=== PATIENT | female | born 1950 | race African-American/Black ===

== ENCOUNTER 2016-11-24 17:49 | Inpatient (IN) | payer MEDICARE ==
[2016-11-24 17:49] VITALS: BMI 32.6
[2016-11-24] MEDS ORDERED: METHYLPREDNISOLONE 125 MG/2 ML VIAL IV ONE (18:35)
[2016-11-24 18:48] LABS: AUTOMATED BASOPHIL 1.3 % (0-2); AUTOMATED EOSINOPHIL 1.6 % (0-5); AUTOMATED LYMPH 16.4 % (17-44); AUTOMATED MONOCYTE 12.4 % (3-10); AUTOMATED NEUTROPHIL 68.3 % (45-76); MPV 10.6 fL (7.4-10.4)
[2016-11-24 18:58] LABS: ABG Draw Site Left Radial; ALLEN'S TEST PASS; BEb 5.8 (+/- 2)
--- NOTE | 2016-11-24 19:02 | DIRPT ---
CLINICAL DATA: 65-year-old female with cough and shortness of breath for 2 weeks. Initial encounter. EXAM: CHEST 2 VIEW COMPARISON: 08/23/2016 and earlier. FINDINGS: Upright AP and lateral views of the chest. Moderate to severe cardiomegaly appears mildly increased. Small to moderate right pleural effusion. There may also be a small left pleural effusion. No superimposed acute pulmonary edema or pneumothorax. Other mediastinal contours are within normal limits. Visualized tracheal air column is within normal limits. No acute osseous abnormality identified. IMPRESSION: 1. Chronic cardiomegaly, but cardiac silhouette appears mildly increased since June raising the possibility of pericardial effusion. 2. Small to moderate right pleural effusion is new. Possible small left pleural effusion. No acute pulmonary edema. Electronically Signed By: Phyllis Matos M.D. On: 11/24/2016 18:59
[2016-11-24 19:07] LABS: PARTIAL THROMB. TIME 26.4 SEC (22-35); PT-INR 1.4
[2016-11-24 19:15] LABS: BLOOD UREA NITROGEN 25 MG/DL (7-17); CALC CORRECTED 9.8 MG/DL (8.4-10.2); CALCULATED OSMOLALITY 272 MOs/Kg (270-290); CHLORIDE 101 mEq/L (98-107); GLUCOSE 99 MG/DL (70-99); SODIUM LEVEL 139 mEq/L (137-146); TOTAL PROTEIN 6.8 G/DL (6.3-8.2)
--- NOTE | 2016-11-24 19:20 | EDPRACDOC ---
- General Information Information Source: Patient Mode Of Arrival: Ambulance - History of Present Illness Onset: several days HPI: PT PRESENTS DUE TO INCREASED SHOB AND COUGHING THAT HAS WORSENED OVER THE PAST SEVERAL DAYS. PT WITH KNOWN HISTORY OF CARDIOMEGALY WITH VEST IN PLACE WHO HAS COME TO THE HOSPITAL FOR IV INFUSIONS OF LASIX OVER THE PAST SEVERAL DAYS. SHE PRESENTS WITH GENERALIZED 2+ PITTING EDEMA, MILD SHOB, NON-PRODUCTIVE COUGH, DENIES NAUSEA, VOMITING, CHILLS OR FEVER. Shortness of Breath: Mild Relevant History: Reports: Heart Failure (CHF) Cough: Reports: Non-productive Rhinorrhea: Reports: Clear Ear Symptoms: Reports: None SOB Worsens with: Reports: Exertion, Movement, Coughing, Lying Flat, Position SOB Improves with: Reports: Sitting up, Rest, Position Recently treated infections:: Denies: Otitis media, Pneumonia, URI <Carla Slade - Last Filed: 11/24/16 19:18> <Onur Proctor - Last Filed: 11/24/16 21:08> - General Information Chief Complaint: Flu-Like Symptoms Stated Complaint: SHOB Time Seen by Provider: 11/24/16 18:27 Home Medications: Home Medications Albuterol Sulfate [Proventil, Ventolin] 2.5 mg NEB Q6H PRN 08/23/16 Metoprolol Tartrate [Lopressor] 25 mg PO BID 08/23/16 Trazodone HCl [Desyrel] 50 mg PO QHS 08/23/16 Omeprazole [Prilosec] 20 mg PO DAILY #30 cap 08/28/16 Potassium Chloride 20 meq PO DAILY #60 tablet.er 08/28/16 Allopurinol [Zyloprim] 300 mg PO DAILY 11/24/16 Benzonatate 200 mg PO TID PRN 11/24/16 Digoxin [Lanoxin, Digitek] 0.125 mg PO DAILY 11/24/16 Furosemide [Lasix] 40 mg PO BID 11/24/16 Ondansetron HCl [Zofran] 4 mg PO Q8H PRN 11/24/16 Allergies/Adverse Reactions: Allergies Allergy/AdvReac Type Severity Reaction Status Date / Time strawberry Allergy Itching Verified 11/24/16 18:14 - Treatment Prior to ED Arrival Reported Medications/Treatment FIELD RECRUITER Medications FIELD RECRUITER (Medication/ neb treatment Dose/Time) EMS Treatment BLS IV No <Carla Slade W - Last Filed: 11/24/16 19:18> - Treatment Prior to ED Arrival Reported Medications/Treatment FIELD RECRUITER Medications FIELD RECRUITER (Medication/ neb treatment Dose/Time) EMS Treatment BLS IV No <Onur Proctor - Last Filed: 11/24/16 21:08> ED Past Medical History - History Reviewed Yes Nurses notes reviewed and agree except as marked - Patient Medical History Neurological History: Denies: Cerebrovascular Accident, Seizures, Dementia Cardiac History: Reports: Atrial Fibrillation (New diagnosis 08/2016), Hypertension, Congestive Heart Failure (SYSTOLIC. 2015 ECHO: EF<20%. mild pulm HTN.), Hypercholesterolemia. Denies: Heart Attack, Pacemaker (scheduled for one soon) Respiratory History: Denies: Asthma, COPD GI/ History: Reports: Renal Disease, Gastroesophageal Reflux, Ulcer Musculoskeletal History: Reports: Arthritis, Gout Psychological History: Denies: Depression, Anxiety, Bipolar Disorder, Substance Use Disorder Systemic History: Denies: Anemia, Hyperthyroidism, Hypothyroidism Surgical History: Reports: Cholecystectomy, Hysterectomy (for fibroids), Other ( Knee). Denies: Tonsillectomy/Adnoidectomy - Family Medical History Reports: Hypertension (Mother), Diabetes (Mother, brother), Stroke (Mother), Cardiac Disorders (Father: [place] at 53yo. Mother: [place], at 73 yo.). Denies : Cancer - Social Medical History Smoking Status: Never smoker Social History: Denies: Substance Use Disorder <Carla Slade W - Last Filed: 11/24/16 19:18> EDM Review of Systems - Review of Systems ROS Negative Except as Marked: Yes All systems reviewed and were negative except as marked <Carla Slade W - Last Filed: 11/24/16 19:18> - Physical Exam Constitutional: Alert. negative: Well appearing Oriented to: Time, Person, Place Last recorded Vital Signs: Last Vital Signs Temp 97.8 F 11/24/16 17:56 Pulse 79 11/24/16 18:24 Resp 14 11/24/16 18:24 BP 156/82 11/24/16 18:24 Pulse Ox 93 11/24/16 18:24 Oxygen Pulse Oxygen Saturation 93 O2 Device Room Air Oxygen Flow Rate Fraction of Inspired Oxygen ( FIO2) - HEENT Head: Normal ( normocephalic) Eye Exam: Normal (PERRL, EOMI, Sclera white) Oropharynx: Normal (Pharynx:Moist without exudate,Gums-no swelling) Tympanic Membrane: Normal Nose: No Symptoms Reported (septum midline) Neck: Normal (FROM, trachea at midline) - Respiratory/Cardiovascular Respiratory: Accessory Muscle Use, Diminished Cardiovascular: Normal (RRR without murmur, gallop or rub) - GI Auscultation: Normal (NABS) Palpation: Tense Tenderness: Diffuse, Mild Lopez's Sign: Negative Rectal Exam: Deferred - Musculoskeletal Back: Normal (Non-Tender) Extremities: Normal (Normal tone, Pulses 2+ No cyanosis or edema, FROM) - Integumentary Skin: Normal, Warm, Dry Lymphatics: Normal (no adenopathy) - Neurologic Memory Impaired: Normal Motor Function: Normal (Normal tone, Pulses 2+ No cyanosis or edema, FROM) Cranial Nerve: Normal (CN II-X11 intact sensation, strength 5/5) Cerebellar: Normal Mood Description: Normal Perception: Normal <Carla Slade - Last Filed: 11/24/16 19:18> - Physical Exam Last recorded Vital Signs: Last Vital Signs Temp 97.8 F 11/24/16 17:56 Pulse 79 11/24/16 20:31 Resp 20 11/24/16 20:31 BP 174/99 11/24/16 20:31 Pulse Ox 98 11/24/16 20:31 Oxygen Pulse Oxygen Saturation 98 O2 Device Nasal Cannula Oxygen Flow Rate 2 Fraction of Inspired Oxygen ( FIO2) <Onur Proctor - Last Filed: 11/24/16 21:08> ED SOB MDM - Differential Diagnosis Differential Diagnosis: Heart Failure, Other - Results Result Diagrams: 11/24/16 18:10 11/24/16 18:10 Results: PT 14.4 SEC (9.2-11.2) H 11/24/16 18:10 INR 1.4 11/24/16 18:10 APTT 26.4 SEC (22-35) 11/24/16 18:10 Puncture Site Left radial 11/24/16 18:50 pH 7.480 pH UNITS (7.35-7.45) H 11/24/16 18:50 pCO2 40.0 mmHg (35-45) 11/24/16 18:50 pO2 62.0 mmHg (80-100) L 11/24/16 18:50 HCO3 29.8 MMOL/L (22-26) H 11/24/16 18:50 Total CO2 31.0 MMOL/L (23-27) H 11/24/16 18:50 Base Excess 5.8 (+/- 2) H 11/24/16 18:50 FiO2 % .21 11/24/16 18:50 Specimen Drawn By Kasgl 11/24/16 18:50 Lab Results 11/24/16 11/24/16 18:50 18:10 PT 14.4 H INR 1.4 APTT 26.4 Puncture Site Left radial pH 7.480 H pCO2 40.0 pO2 62.0 L HCO3 29.8 H Total CO2 31.0 H Base Excess 5.8 H FiO2 % .21 Specimen Drawn By Kasgl - EKG EKG #1 EKG Time: 17:57 -: Yes EKG interpreted by me Rate: bpm: [address] [place]: Normal Rhythm: NSR, PVCs Block: None Hypertrophy: None ST: Old, Lat, Infarct <Carla Slade W - Last Filed: 11/24/16 19:18> - Results Result Diagrams: 11/24/16 18:10 11/24/16 18:10 Results: WBC 4.1 xk/uL (3.8-10.8) 11/24/16 18:10 RBC 4.30 xM/uL (4.20-5.40) 11/24/16 18:10 Hgb 12.5 g/dL (12.0-16.0) 11/24/16 18:10 Hct 40.0 % (36-47) 11/24/16 18:10 MCV 93 fL (81-99) 11/24/16 18:10 MCH 29.0 pg (27-32) 11/24/16 18:10 MCHC 31.2 g/dl (33-36) L 11/24/16 18:10 RDW 19.9 % (11.5-14.5) H 11/24/16 18:10 Plt Count 158 xk/uL (130-400) 11/24/16 18:10 MPV 10.6 fL (7.4-10.4) H 11/24/16 18:10 Neut % (Auto) 68.3 % (45-76) 11/24/16 18:10 Lymph % (Auto) 16.4 % (17-44) L 11/24/16 18:10 [place] % (Auto) 12.4 % (3-10) H 11/24/16 18:10 Eos % (Auto) 1.6 % (0-5) 11/24/16 18:10 Baso % (Auto) 1.3 % (0-2) 11/24/16 18:10 Absolute Neuts (auto) 2.79 xk/uL (1.7-8.2) 11/24/16 18:10 Absolute Lymphs (auto) 0.66 xk/uL (0.65-4.75) 11/24/16 18:10 PT 14.4 SEC (9.2-11.2) H 11/24/16 18:10 INR 1.4 11/24/16 18:10 APTT 26.4 SEC (22-35) 11/24/16 18:10 Puncture Site Left radial 11/24/16 18:50 pH 7.480 pH UNITS (7.35-7.45) H 11/24/16 18:50 pCO2 40.0 mmHg (35-45) 11/24/16 18:50 pO2 62.0 mmHg (80-100) L 11/24/16 18:50 HCO3 29.8 MMOL/L (22-26) H 11/24/16 18:50 Total CO2 31.0 MMOL/L (23-27) H 11/24/16 18:50 Base Excess 5.8 (+/- 2) H 11/24/16 18:50 FiO2 % .21 11/24/16 18:50 Specimen Drawn By Kasgl 11/24/16 18:50 Sodium 139 mEq/L (137-146) 11/24/16 18:10 Potassium 3.9 mEq/L (3.5-5.1) 11/24/16 18:10 Chloride 101 mEq/L (98-107) 11/24/16 18:10 Carbon Dioxide 25 mMOL/L (22-33) 11/24/16 18:10 Anion Gap 17 mEq/L (8-16) H 11/24/16 18:10 BUN 25 MG/DL (7-17) H 11/24/16 18:10 Creatinine 1.40 MG/DL (0.52-1.04) H 11/24/16 18:10 Estimated GFR (MDRD) 46 mL/min (>=60) L 11/24/16 18:10 Glucose 99 MG/DL (70-99) 11/24/16 18:10 Calculated Osmolality 272 MOs/Kg (270-290) 11/24/16 18:10 Lactic Acid 2.2 mEq/L (0.7-2.1) H 11/24/16 18:10 Calcium 9.0 MG/DL (8.4-10.2) 11/24/16 18:10 Corrected Calcium 9.8 MG/DL (8.4-10.2) 11/24/16 18:10 Total Bilirubin 2.5 MG/DL (0.2-1.3) H 11/24/16 18:10 AST 30 IU/L (14-36) 11/24/16 18:10 ALT 33 IU/L (9-52) 11/24/16 18:10 Alkaline Phosphatase 232 IU/L (55-165) H 11/24/16 18:10 Creatine Kinase 62 IU/L (30-134) 11/24/16 18:10 Troponin I < 0.01 ng/mL (<.04) 11/24/16 18:10 Total Protein 6.8 G/DL (6.3-8.2) 11/24/16 18:10 Albumin 3.2 G/DL (3.5-5.0) L 11/24/16 18:10 Urine Color Yellow 11/24/16 19:13 Urine Clarity Sl hzy 11/24/16 19:13 Urine pH 6.0 (5.0-8.0) 11/24/16 19:13 Ur Specific Belva 1.010 (1.003-1.035) 11/24/16 19:13 Urine Protein Trace (NEG/TRACE) 11/24/16 19:13 Urine Glucose (UA) Neg (NEGATIVE) 11/24/16 19:13 Urine Ketones Neg (NEGATIVE) 11/24/16 19:13 Urine Occult Blood Neg (NEG/TRACE) 11/24/16 19:13 Urine Nitrite Neg (NEGATIVE) 11/24/16 19:13 Urine Bilirubin Neg (NEGATIVE) 11/24/16 19:13 Urine Urobilinogen 0.2 MG/DL (0-1) 11/24/16 19:13 Ur Leukocyte Esterase Neg (NEGATIVE) 11/24/16 19:13 Urine RBC 0-2 (0-5) 11/24/16 19:13 Urine WBC 10-20 (0-5) H 11/24/16 19:13 Ur Epithelial Cells 3+ 11/24/16 19:13 Urine Bacteria 4+ (NEG/FEW) H 11/24/16 19:13 Hyaline Casts 10-20 (0-2) H 11/24/16 19:13 Urine Mucus Occ (NEG/OCC) 11/24/16 19:13 Lab Results 11/24/16 11/24/16 11/24/16 19:13 18:50 18:10 WBC RBC Hgb Hct MCV MCH MCHC RDW Plt Count MPV Neut % (Auto) Lymph % (Auto) [place] % (Auto) Eos % (Auto) Baso % (Auto) Absolute Neuts (auto) Absolute Lymphs (auto) PT INR APTT Puncture Site Left radial pH 7.480 H pCO2 40.0 pO2 62.0 L HCO3 29.8 H Total CO2 31.0 H Base Excess 5.8 H FiO2 % .21 Specimen Drawn By Kasgl Sodium Potassium Chloride Carbon Dioxide Anion Gap BUN Creatinine Estimated GFR (MDRD) Glucose Calculated Osmolality Lactic Acid 2.2 H Calcium Corrected Calcium Total Bilirubin AST ALT Alkaline Phosphatase Creatine Kinase Troponin I Total Protein Albumin Urine Color Yellow Urine Clarity Sl hzy Urine pH 6.0 Ur Specific [place] 1.010 Urine Protein Trace Urine Glucose (UA) Neg Urine Ketones Neg Urine Occult Blood Neg Urine Nitrite Neg Urine Bilirubin Neg Urine Urobilinogen 0.2 Ur Leukocyte Esterase Neg Urine RBC 0-2 Urine WBC 10-20 H Ur Epithelial Cells 3+ Urine Bacteria 4+ H Hyaline Casts 10-20 H Urine Mucus Occ 11/24/16 11/24/16 11/24/16 18:10 18:10 18:10 WBC 4.1 RBC 4.30 Hgb 12.5 Hct 40.0 MCV 93 MCH 29.0 MCHC 31.2 L RDW 19.9 H Plt Count 158 MPV 10.6 H Neut % (Auto) 68.3 Lymph % (Auto) 16.4 L [place] % (Auto) 12.4 H Eos % (Auto) 1.6 Baso % (Auto) 1.3 Absolute Neuts (auto) 2.79 Absolute Lymphs (auto) 0.66 PT 14.4 H INR 1.4 APTT 26.4 Puncture Site pH pCO2 pO2 HCO3 Total CO2 Base Excess FiO2 % Specimen Drawn By Sodium 139 Potassium 3.9 Chloride 101 Carbon Dioxide 25 Anion Gap 17 H BUN 25 H Creatinine 1.40 H Estimated GFR (MDRD) 46 L Glucose 99 Calculated Osmolality 272 Lactic Acid Calcium 9.0 Corrected Calcium 9.8 Total Bilirubin 2.5 H AST 30 ALT 33 Alkaline Phosphatase 232 H Creatine Kinase 62 Troponin I < 0.01 Total Protein 6.8 Albumin 3.2 L Urine Color Urine Clarity Urine pH Ur Specific [place] Urine Protein Urine Glucose (UA) Urine Ketones Urine Occult Blood Urine Nitrite Urine Bilirubin Urine Urobilinogen Ur Leukocyte Esterase Urine RBC Urine WBC Ur Epithelial Cells Urine Bacteria Hyaline Casts Urine Mucus - Additional Information Additional Information: Pt with chronic CHF, on 40 mg lasix normally, uses vest as well. no home O2, has been able to ambulate with just a cane in home over the past 4 months. However in the past 2 weeks, DARNELL worse, coughing worse, productive of clear sputum, no fevers. Pt is supposed to have an ECHO and stress tomorrow at . Had severe coughing tonight, couldn't acutely catch her breath. Seems relatively improved at present. Pt and family not comfortable going home. Will give NTG for systolic, 170 here, IV lasix 40, discuss with hospitalist. <Onur Proctor - Last Filed: 11/24/16 21:08> - Departure Education/Counseling Given To: Patient Education/Counseling Given Regarding: Diagnosis, Treatment, Prognosis, Follow Up <Carla Slade - Last Filed: 11/24/16 19:18> - Departure Yes I personally saw and evaluated the patient. Disposition: Admit IP To This Hospital Decision to Admit Time: 21:02 Decision to admit date: 11/24/16 Decision to admit: from ED - Physician Consulted Hospitalist Provider Called: Kulwinder Coleman Time Officer Lieutenant Returned Call: 21:08 <Onur Proctor - Last Filed: 11/24/16 21:08> - Departure Condition: Stable Final Diagnosis: Bilateral pleural effusion CHF (congestive heart failure) Qualifiers: Congestive heart failure type: unspecified congestive heart failure type Congestive heart failure chronicity: acute on chronic Qualified Code(s): I50.9 - Heart failure, unspecified Instructions: *Heart Failure (Activity, Diet, Worsening Symptoms, Weight Monitoring)(ED) Referrals: Sharad Donald MD [Primary Care Provider] - One Week
[2016-11-24 19:57] LABS: CPK TOTAL WITH POSSIBLE MB 62 IU/L (30-134)
[2016-11-24 20:24] LABS: LEUKOCYTES/URINE NEG (NEGATIVE); RBC/URINE 0-2 (0-5); URINE OCCULT BLOOD NEG (NEG/TRACE)
[2016-11-24 20:25] LABS: NITRITE/URINE NEG (NEGATIVE)
[2016-11-24] MEDS ORDERED: FUROSEMIDE 40 MG/4 ML VIAL IV ONE (21:00)
[2016-11-24] MEDS ORDERED: NITROGLYCERINE 2 % OINTMENT PACK TOP ONE (21:00)
[2016-11-24] MEDS ORDERED: BENZONATATE 200 MG PO PRN (21:09)
[2016-11-24] MEDS ORDERED: ALBUTEROL 0.083% 3 ML NEB NEB PRN (21:10)
--- NOTE | 2016-11-24 21:12 | HISTPHYS ---
- Chief Complaint Shortness of breath, lower extremity edema - History of Present Illness This is a pleasant 65-year-old female with a history of atrial fibrillation which is rate controlled as well as heart failure was being admitted to the hospital due to shortness of breath. She has been in her usual state of health until over the last week, when she was found to have worsening peripheral edema is sent by her analytics senior manager the outpatient center for doses of IV Lasix over the last couple of days. Her daughters at the bedside and says that her edema improved initially, but seemed to worsen over the last couple of days. Due to her worsening edema and now shortness of breath, she was brought to the emergency department for evaluation. Here, her chest x-ray shows pulmonary edema, she was placed on nasal cannula oxygen and has already been given a dose of Lasix. She denies any chest pain or shortness of breath. She has no history of smoking or diagnosis of COPD. She denies any cough, chest pain, fevers, chills, nausea, vomiting, changes in bowel habits, changes in bladder symptoms, dysuria urgency or frequency. No weight gain or weight loss. - Medical History Cardiac History: Reports: Atrial Fibrillation (New diagnosis 08/2016), Hypertension, Congestive Heart Failure (SYSTOLIC. 2016 ECHO: EF<20%. mild pulm HTN.), Hypercholesterolemia. Denies: Heart Attack, Pacemaker (scheduled for one soon) Respiratory History: Denies: Asthma, COPD GI/ History: Reports: Renal Disease, Gastroesophageal Reflux, Ulcer Musculoskeletal History: Reports: Arthritis, Gout Systemic History: Denies: Anemia, Hyperthyroidism, Hypothyroidism Neurological History: Denies: Cerebrovascular Accident, Seizures, Dementia Psychological History: Denies: Depression, Anxiety, Bipolar Disorder, Substance Use Disorder - Surgical History Reports: Cholecystectomy, Hysterectomy (for fibroids), Other (Knee). Denies: Tonsillectomy/Adnoidectomy - Medictions/Allergies Allergies strawberry Allergy (Verified 11/24/16 18:14) Itching Home Medications Albuterol Sulfate [Proventil, Ventolin] 2.5 mg NEB Q6H PRN 08/23/16 Metoprolol Tartrate [Lopressor] 25 mg PO BID 08/23/16 Trazodone HCl [Desyrel] 50 mg PO QHS 08/23/16 Omeprazole [Prilosec] 20 mg PO DAILY #30 cap 08/28/16 Potassium Chloride 20 meq PO DAILY #60 tablet.er 08/28/16 Allopurinol [Zyloprim] 300 mg PO DAILY 11/24/16 Benzonatate 200 mg PO TID PRN 11/24/16 Digoxin [Lanoxin, Digitek] 0.125 mg PO DAILY 11/24/16 Furosemide [Lasix] 40 mg PO BID 11/24/16 Ondansetron HCl [Zofran] 4 mg PO Q8H PRN 11/24/16 - Family History Reports: Hypertension (Mother), Diabetes (Mother, brother), Stroke (Mother), Cardiac Disorders (Father: [place] at 53yo. Mother: [place], at 73 yo.). Denies : Cancer - Social History Smoking Status: Never smoker Social History: Denies: Substance Use Disorder - Physical Exam Vital Signs: Initial Vitals Temperature 97.8 F 11/24/16 17:56 Pulse Rate 95 11/24/16 17:56 Respiratory Rate 20 11/24/16 17:56 Blood Pressure 159/88 11/24/16 17:56 Pulse Oxygen Saturation 92 11/24/16 17:56 Constitutional: Alert (Awake, Fully oriented, well appearing. No apparent distress) Oriented to: Time, Person, Place - HEENT Head: Normal (normocephalic,atraumatic, trachea midline) Eye: Normal (EOMI, Sclera white) Oropharynx: Normal (moist) Nose: No Symptoms Reported (without discharge or bleeding) Respiratory: Other (Crackles at bilateral bases. No wheezing or rhonchi.) Cardiovascular: Normal (RRR, no murmurs, rubs or gallops) - GI Palpation: Normal (soft, non distended and nontender) - Musculoskeletal Extremities: Normal (normal tone, no cyanosis or edema) She has tight 2+ pitting edema in the bilateral lower extremities as well as in her hands. - Integumentary Skin: Normal (no rashes or lesions) - Neurologic Cranial Nerve: Normal (CN II-XII intact) Mood Description: Normal (Fully oriented and appropiate affect) - Focused CV Perfusion Exam Vital Signs: Last Vital Signs Temp 97.8 F 11/24/16 17:56 Pulse 79 11/24/16 20:31 Resp 20 11/24/16 20:31 BP 174/99 11/24/16 20:31 Pulse Ox 98 11/24/16 20:31 - Lab Results Laboratory Tests 11/24/16 11/24/16 11/24/16 18:10 18:10 18:10 WBC 4.1 Hgb 12.5 Hct 40.0 Plt Count 158 INR 1.4 pH pCO2 pO2 Potassium 3.9 BUN 25 H Creatinine 1.40 H 11/24/16 18:50 WBC Hgb Hct Plt Count INR pH 7.480 H pCO2 40.0 pO2 62.0 L Potassium BUN Creatinine - Diagnostic Findings CXR: 1. Chronic cardiomegaly, but cardiac silhouette appears mildly increased since June raising the possibility of pericardial effusion. 2. Small to moderate right pleural effusion is new. Possible small left pleural effusion. No acute pulmonary edema. - Assessment (1) Acute on chronic systolic congestive heart failure I50.23 - ACUTE ON CHRONIC SYSTOLIC (CONGESTIVE) HEART FAILURE Acute Patient is being admitted to the [facility] due to acute on chronic exacerbation of her heart failure, with increasing peripheral edema and dyspnea on exertion with shortness of breath. She has a known EF of less than 20%, echo was last done as an outpatient as recently as August. Will continue her usual cardiac medications, no need for repeat echocardiography. Could consider cardiology consultation in the morning. Will start aggressive IV Lasix diuresis with potassium supplementation. Provide teaching regarding heart failure, 2 g sodium diet, daily weights. Provide support with oxygen by nasal cannula as needed. Monitor heart rate, blood pressure and respiratory status. She was admitted to the hospital using acute heart failure order set. (2) Atrial fibrillation with RVR I48.91 - UNSPECIFIED ATRIAL FIBRILLATION Acute Patient is followed by Cardiology as an outpatient, keep potassium more than 4 and magnesium more than 2. Continue her oral medications, including beta-stephani. She is rate controlled at baseline. (3) Chronic renal failure N18.9 - CHRONIC KIDNEY DISEASE, UNSPECIFIED Acute Qualifiers: Chronic kidney disease stage: C (4) Physical deconditioning R53.81 - OTHER MALAISE Acute Physical therapy as needed. Case Care Discussed with: Patient, Family, Nursing Staff Total Time: 48
[2016-11-24] MEDS ORDERED: Pharmacy Order Set Alert SCH (22:00)
[2016-11-24] MEDS: PANTOPRAZOLE 40 MG VIAL IV SCH (22:36)
[2016-11-24 22:45] LABS: CPK TOTAL WITH POSSIBLE MB 63 IU/L (30-134)
[2016-11-24] MEDS ORDERED: AZITHROMYCIN 500 MG in D5W 250 ML IV SCH (23:00)
[2016-11-24] MEDS ORDERED: TRAZODONE 50 MG TAB PO ONE (23:00)
[2016-11-24] MEDS ORDERED: CEFTRIAXONE 1 GM in D5W 100 ML IV SCH (23:00)
[2016-11-25] MEDS ORDERED: METHYLPREDNISOLONE 125 MG/2 ML VIAL IV SCH (01:00)
[2016-11-25] MEDS: Albuterol/Ipratropium Neb 3 ML NEB NEB SCH ×4 (01:47→19:30)
[2016-11-25 07:17] LABS: MPV 10.2 fL (7.4-10.4)
[2016-11-25 07:36] LABS: BLOOD UREA NITROGEN 26 MG/DL (7-17); CALCIUM 9.3 MG/DL (8.4-10.2); CALCULATED OSMOLALITY 276 MOs/Kg (270-290); CHLORIDE 101 mEq/L (98-107); GLUCOSE 131 MG/DL (70-99); SODIUM LEVEL 140 mEq/L (137-146)
[2016-11-25] MEDS: FUROSEMIDE 40 MG/4 ML VIAL IV SCH ×2 (08:12→16:52)
[2016-11-25] MEDS: METOPROLOL TARTRATE 25 MG TAB PO SCH ×2 (08:12→21:42)
[2016-11-25] MEDS: ALLOPURINOL 300 MG TAB PO SCH (08:12)
[2016-11-25] MEDS ORDERED: DIGOXIN 0.125 MG TAB PO SCH (09:00)
[2016-11-25] MEDS ORDERED: Non-Formulary Medication ITEM (Potassium Chloride [Potassium Chloride] 20 MEQ) PO SCH (09:00)
[2016-11-25] MEDS ORDERED: Magnesium Sulfate 1 gm/D5W 1 GM/100 ML RTU IV ONE (11:01)
[2016-11-25] MEDS ORDERED: ALBUTEROL 0.083% 3 ML NEB NEB PRN (11:12)
--- NOTE | 2016-11-25 11:15 | GENMEDPROG ---
Chief Complaint: Less short of breath today but still mentions some orthopnea and has JVD to the angle of the jaw with 3+ tense edema lower extremities and abdomen Notes Reviewed: Yes Events from last night noted and discussed with Clinical Staff Current Medication List: Reviewed Currently: Reports: Cough DVT Prophylaxis: Yes - Physical Examination Vital Signs and I&O: Last Vital Signs Temp 97.5 F 11/25/16 10:00 Pulse 77 11/25/16 10:00 Resp 18 11/25/16 10:00 BP 140/76 11/25/16 10:00 Pulse Ox 97 11/25/16 10:00 Oxygen Pulse Oxygen Saturation 97 O2 Device Nasal Cannula Oxygen Flow Rate 2 Fraction of Inspired Oxygen ( FIO2) Intake & Output 11/22/16 11/23/16 11/24/16 11/25/16 23:59 23:59 23:59 23:59 Intake Total 0 300 Output Total 550 Balance 0 -250 Patient's weight 91.852 kg General: Alert, Oriented x3, No acute distress, Well appearing, Well nourished HEENT: Normal (Normocephalic, atraumatic;EOMI.Sclera white, Nares patent, without discharge or bleeding. No oropharyngeal lesions or erythema. Mucous membranes are dry.) Neck: Non-tender, Full range of motion, Normal Trachea alignment, Normal inspection (No cervical lymphadenopathy. No supraclavicular lymphadenopathy.), No Masses palpable, Supple Lymphatics: Normal (No lymph node swelling or pain.) Respiratory: Other (Crackles at bilateral bases. No wheezing or rhonchi.) Cardiovascular: Regular rate and rhythm (No bradycardia or tachycardia), Normal S1, No Gallops,Rubs/Murmurs, Normal S2, Good Pedal Pulses (DP pulses 2+ bilaterally) GI: Normal bowel sounds (normal active sounds), Soft (non-distended), Non tender , No hepatospenomegaly, No masses Extremities/Musculoskeletal: Normal pulses (DP pulses 2+ bilaterally) Skin: Warm,Dry and Intact, No rashes, No significant lesion Neurological: Strength at 5/5 X4 ext (Motor 5/5 throughout.), Normal tone, Cranial nerves 3-12 NL ( 2-12 grossly intact.) Psych/Mental Status: Appropriate, Normal Affect Lab/DI/Studies Reviewed: 11/25/16 06:35 11/25/16 06:35 Laboratory Results - last 24 hr 11/24/16 11/24/16 11/24/16 18:10 18:10 18:10 WBC 4.1 RBC 4.30 Hgb 12.5 Hct 40.0 MCV 93 MCH 29.0 MCHC 31.2 L RDW 19.9 H Plt Count 158 MPV 10.6 H Neut % (Auto) 68.3 Lymph % (Auto) 16.4 L [place] % (Auto) 12.4 H Eos % (Auto) 1.6 Baso % (Auto) 1.3 Absolute Neuts (auto) 2.79 Absolute Lymphs (auto) 0.66 PT 14.4 H INR 1.4 APTT 26.4 Puncture Site pH pCO2 pO2 HCO3 Total CO2 Base Excess FiO2 % Specimen Drawn By Sodium 139 Potassium 3.9 Chloride 101 Carbon Dioxide 25 Anion Gap 17 H BUN 25 H Creatinine 1.40 H Estimated GFR (MDRD) 46 L Glucose 99 Calculated Osmolality 272 Lactic Acid Calcium 9.0 Corrected Calcium 9.8 Magnesium Total Bilirubin 2.5 H AST 30 ALT 33 Alkaline Phosphatase 232 H Creatine Kinase 62 Troponin I < 0.01 Zda-M-Gsfcwyeanep Pept 30653 H Total Protein 6.8 Albumin 3.2 L Urine Color Urine Clarity Urine pH Ur Specific [place] Urine Protein Urine Glucose (UA) Urine Ketones Urine Occult Blood Urine Nitrite Urine Bilirubin Urine Urobilinogen Ur Leukocyte Esterase Urine RBC Urine WBC Ur Epithelial Cells Urine Bacteria Hyaline Casts Urine Mucus 11/24/16 11/24/16 11/24/16 18:10 18:50 19:13 WBC RBC Hgb Hct MCV MCH MCHC RDW Plt Count MPV Neut % (Auto) Lymph % (Auto) [place] % (Auto) Eos % (Auto) Baso % (Auto) Absolute Neuts (auto) Absolute Lymphs (auto) PT INR APTT Puncture Site Left radial pH 7.480 H pCO2 40.0 pO2 62.0 L HCO3 29.8 H Total CO2 31.0 H Base Excess 5.8 H FiO2 % .21 Specimen Drawn By Kasgl Sodium Potassium Chloride Carbon Dioxide Anion Gap BUN Creatinine Estimated GFR (MDRD) Glucose Calculated Osmolality Lactic Acid 2.2 H Calcium Corrected Calcium Magnesium Total Bilirubin AST ALT Alkaline Phosphatase Creatine Kinase Troponin I Cgd-Y-Ghgyhxupbms Pept Total Protein Albumin Urine Color Yellow Urine Clarity Sl hzy Urine pH 6.0 Ur Specific Warren 1.010 Urine Protein Trace Urine Glucose (UA) Neg Urine Ketones Neg Urine Occult Blood Neg Urine Nitrite Neg Urine Bilirubin Neg Urine Urobilinogen 0.2 Ur Leukocyte Esterase Neg Urine RBC 0-2 Urine WBC 10-20 H Ur Epithelial Cells 3+ Urine Bacteria 4+ H Hyaline Casts 10-20 H Urine Mucus Occ 11/24/16 11/24/16 11/25/16 21:50 21:50 01:00 WBC RBC Hgb Hct MCV MCH MCHC RDW Plt Count MPV Neut % (Auto) Lymph % (Auto) [place] % (Auto) Eos % (Auto) Baso % (Auto) Absolute Neuts (auto) Absolute Lymphs (auto) PT INR APTT Puncture Site pH pCO2 pO2 HCO3 Total CO2 Base Excess FiO2 % Specimen Drawn By Sodium Potassium Chloride Carbon Dioxide Anion Gap BUN Creatinine Estimated GFR (MDRD) Glucose Calculated Osmolality Lactic Acid 2.2 H Calcium Corrected Calcium Magnesium Total Bilirubin AST ALT Alkaline Phosphatase Creatine Kinase 63 Troponin I < 0.01 < 0.01 Sos-H-Oeraxbsqwln Pept Total Protein Albumin Urine Color Urine Clarity Urine pH Ur Specific [place] Urine Protein Urine Glucose (UA) Urine Ketones Urine Occult Blood Urine Nitrite Urine Bilirubin Urine Urobilinogen Ur Leukocyte Esterase Urine RBC Urine WBC Ur Epithelial Cells Urine Bacteria Hyaline Casts Urine Mucus 11/25/16 11/25/16 06:35 06:35 WBC 1.8 L RBC 4.17 L Hgb 12.1 Hct 37.5 MCV 90 MCH 29.1 MCHC 32.3 L RDW 18.9 H Plt Count 151 MPV 10.2 Neut % (Auto) Lymph % (Auto) [place] % (Auto) Eos % (Auto) Baso % (Auto) Absolute Neuts (auto) Absolute Lymphs (auto) PT INR APTT Puncture Site pH pCO2 pO2 HCO3 Total CO2 Base Excess FiO2 % Specimen Drawn By Sodium 140 Potassium 4.0 Chloride 101 Carbon Dioxide 29 Anion Gap 14 BUN 26 H Creatinine 1.30 H Estimated GFR (MDRD) 50 L Glucose 131 H Calculated Osmolality 276 Lactic Acid Calcium 9.3 Corrected Calcium Magnesium 1.70 Total Bilirubin AST ALT Alkaline Phosphatase Creatine Kinase Troponin I Fpm-H-Jszasyozown Pept 18178 H Total Protein Albumin Urine Color Urine Clarity Urine pH Ur Specific [place] Urine Protein Urine Glucose (UA) Urine Ketones Urine Occult Blood Urine Nitrite Urine Bilirubin Urine Urobilinogen Ur Leukocyte Esterase Urine RBC Urine WBC Ur Epithelial Cells Urine Bacteria Hyaline Casts Urine Mucus - Assessment (1) Chronic systolic (congestive) heart failure Chronic I50.22 - CHRONIC SYSTOLIC (CONGESTIVE) HEART FAILURE Comment/Plan: Recent echo at double reamer operator's office showed EF < 20%. Diet of 2 g Na. Daily weights with strict I/O's. No IVF unless patient is NPO. As tolerated, give beta stephani. Patient unable to take LANCE inhibitor or ARB due to renal failure. Will continue to Provide teaching regarding heart failure, 2g Na diet, daily weights, signs of acute heart failure. I have taken the liberty of adding Zaroxolyn and Aldactone to her regimen and Dr. Hernandez has been consulted for further management. He indicated to me that she was on hydralazine and nitrates for her CHF but no longer taking that and concerned that her blood pressure may have dropped to low for her to tolerated. Will need to get copy of outpatient visits from Cardiology. (2) Acute kidney injury Acute N17.9 - ACUTE KIDNEY FAILURE, UNSPECIFIED Comment/Plan: Monitor renal function avoid any nephrotoxins . Renal function improved but is likely to worsen and she is given Lance inhibitors or angiotensin receptor blockers as it did before with creatinine climbing to 2.8. (3) Leukopenia Acute D72.819 - DECREASED WHITE BLOOD CELL COUNT, UNSPECIFIED Qualifiers: Leukopenia type: other Neutropenia type: N Qualified Code(s): D72.818 - Other decreased white blood cell count Comment/Plan: Monitor CBC. (4) Paroxysmal atrial fibrillation Acute I48.0 - PAROXYSMAL ATRIAL FIBRILLATION Comment/Plan: Patient is followed by Cardiology as an outpatient, keep potassium more than 4 and magnesium more than 2. Continue her oral medications, including beta-stephani. She is rate controlled at baseline. Case Care Discussed with: Patient, Consultants, Nursing Staff, Resource Management Education/Counseling Given To: Patient Education/Counseling Given Regarding: Diagnosis, Treatment Total Time: 43 min Critical Care: No Code: 29683 (12+)
--- NOTE | 2016-11-25 11:17 | PCM.CARDCO ---
Consultation Date: 11/25/16 Requesting Physician: Tacho Daly Supervisor [employer]: Rajan Hernandez Consult Reason: CHF - History of Present Illness Patient is a 65 years old woman well-known to me from last admission she does have cardiomyopathy with ejection fraction of 20%. Last time she was here she improved quite significantly she was put on appropriate medication discharged home. However she did not follow-up with any box inspector she just so her primary care physician. There were also some changes in the list of the medication she has been taking at home basically hydralazine isosorbide disappeared from the list. She presented to the hospital with progressive shortness of breath that been going on for time of last few weeks. There is increased swelling of lower extremities paroxysmal atrial dyspnea. She does have all signs and symptoms of decompensated congestive heart failure. She was admitted yesterday diuretics were given. She seems to be improving and seems to be comfortable today. Denies having any chest pain. She does were life vest , no discharges from the device. Chief Complaint: Shortness of breath, lower extremity edema - Past Medical and Surgical History Cardiac History: Reports: Atrial Fibrillation (New diagnosis 08/2016), Hypertension, Congestive Heart Failure (SYSTOLIC. 2016 ECHO: EF<20%. mild pulm HTN.), Hypercholesterolemia. Denies: Heart Attack, Pacemaker (scheduled for one soon) Respiratory History: Denies: Asthma, COPD GI/ History: Reports: Renal Disease, Gastroesophageal Reflux, Ulcer Systemic History: Denies: Anemia, Hyperthyroidism, Hypothyroidism Musculoskeletal History: Reports: Arthritis, Gout Psychological History: Denies: Depression, Anxiety, Bipolar Disorder, Substance Use Disorder Neurological History: Denies: Cerebrovascular Accident, Seizures, Dementia Past Surgical History: Reports: Cholecystectomy, Hysterectomy (for fibroids), Other (Knee). Denies: Tonsillectomy/Adnoidectomy Allergies strawberry Allergy (Verified 11/24/16 18:14) Itching Home Medications Albuterol Sulfate [Proventil, Ventolin] 2.5 mg NEB Q6H PRN 08/23/16 Metoprolol Tartrate [Lopressor] 25 mg PO BID 08/23/16 Trazodone HCl [Desyrel] 50 mg PO QHS 08/23/16 Omeprazole [Prilosec] 20 mg PO DAILY #30 cap 08/28/16 Potassium Chloride 20 meq PO DAILY #60 tablet.er 08/28/16 Allopurinol [Zyloprim] 300 mg PO DAILY 11/24/16 Benzonatate 200 mg PO TID PRN 11/24/16 Digoxin [Lanoxin, Digitek] 0.125 mg PO DAILY 11/24/16 Furosemide [Lasix] 40 mg PO BID 11/24/16 Ondansetron HCl [Zofran] 4 mg PO Q8H PRN 11/24/16 - Social History Travel Outside of [place] in the Last 3 Months?: No Smoking Status: Never smoker Social History: Denies: Substance Use Disorder - Family History Reports: Hypertension (Mother), Diabetes (Mother, brother), Stroke (Mother), Cardiac Disorders (Father: [place] at 53yo. Mother: [place], at 73 yo.). Denies : Cancer Negative except as described per history of present illness. - Physical Exam Constitutional: Alert (Awake, Fully oriented, well appearing. No apparent distress) Oriented to: Time, Person, Place Exam: Last Vital Signs Temp 97.5 F 11/25/16 10:00 Pulse 77 11/25/16 10:00 Resp 18 11/25/16 10:00 BP 140/76 11/25/16 10:00 Pulse Ox 97 11/25/16 10:00 Intake & Output 11/24/16 11/25/16 11/25/16 23:59 07:59 15:59 Intake Total 0 60 240 Output Total 550 Balance 0 -490 240 Patient's weight 91.852 kg - HEENT Head: Normal (normocephalic,atraumatic, trachea midline) Eye: Normal (EOMI, Sclera white) Oropharynx: Normal (moist) Nose: No Symptoms Reported (without discharge or bleeding) - Respiratory/Cardiovascular Respiratory: Other (Crackles at bilateral bases. No wheezing or rhonchi.) - GI Palpation: Normal (soft, non distended and nontender) - Musculoskeletal Extremities: Normal (normal tone, no cyanosis or edema) - Integumentary Skin: Normal (no rashes or lesions) - Neurologic Mood Description: Normal (Fully oriented and appropiate affect) - Other Exam Other Exam Findings: General Appearance: Well developed. Well nourished. In mild respiratory distress. Lungs: Chest was not overinflated. Clear to auscultation. Cardiovascular: Jugular Venous Distention: JVD increased bilaterally Heart Rate And Rhythm: Irregularly irregular. Heart Sounds: Systolic murmur grade 2/6 best heard left border sternum.. Murmurs: No murmurs were heard. Carotid Arteries: Carotid pulses were normal. No bruit in the carotid artery. Edema: Not present. Lower extremities pulses normal (including femoral popliteal and dorsalis pedis) . 1+ pitting edema. Musculoskeletal System: General/bilateral: No cyanosis of the fingers. Neurological: Oriented to time, place, and person. Nails: No clubbing of the fingernails. - Lab Results Laboratory Tests 11/24/16 11/24/16 11/24/16 18:10 18:10 18:10 WBC 4.1 RBC 4.30 Hgb 12.5 Hct 40.0 MCV 93 MCH 29.0 MCHC 31.2 L RDW 19.9 H Plt Count 158 MPV 10.6 H Neut % (Auto) 68.3 Lymph % (Auto) 16.4 L [place] % (Auto) 12.4 H Eos % (Auto) 1.6 Baso % (Auto) 1.3 Absolute Neuts (auto) 2.79 Absolute Lymphs (auto) 0.66 PT 14.4 H INR 1.4 APTT 26.4 Puncture Site pH pCO2 pO2 HCO3 Total CO2 Base Excess FiO2 % Specimen Drawn By Sodium 139 Potassium 3.9 Chloride 101 Carbon Dioxide 25 Anion Gap 17 H BUN 25 H Creatinine 1.40 H Estimated GFR (MDRD) 46 L Glucose 99 Calculated Osmolality 272 Lactic Acid Calcium 9.0 Corrected Calcium 9.8 Magnesium Total Bilirubin 2.5 H AST 30 ALT 33 Alkaline Phosphatase 232 H Creatine Kinase 62 Troponin I < 0.01 Vcz-I-Pjatcjjlvwu Pept 15278 H Total Protein 6.8 Albumin 3.2 L Urine Color Urine Clarity Urine pH Ur Specific [place] Urine Protein Urine Glucose (UA) Urine Ketones Urine Occult Blood Urine Nitrite Urine Bilirubin Urine Urobilinogen Ur Leukocyte Esterase Urine RBC Urine WBC Ur Epithelial Cells Urine Bacteria Hyaline Casts Urine Mucus 11/24/16 11/24/16 11/24/16 18:10 18:50 19:13 WBC RBC Hgb Hct MCV MCH MCHC RDW Plt Count MPV Neut % (Auto) Lymph % (Auto) [place] % (Auto) Eos % (Auto) Baso % (Auto) Absolute Neuts (auto) Absolute Lymphs (auto) PT INR APTT Puncture Site Left radial pH 7.480 H pCO2 40.0 pO2 62.0 L HCO3 29.8 H Total CO2 31.0 H Base Excess 5.8 H FiO2 % .21 Specimen Drawn By Kasgl Sodium Potassium Chloride Carbon Dioxide Anion Gap BUN Creatinine Estimated GFR (MDRD) Glucose Calculated Osmolality Lactic Acid 2.2 H Calcium Corrected Calcium Magnesium Total Bilirubin AST ALT Alkaline Phosphatase Creatine Kinase Troponin I Tfk-Q-Riayvbioakg Pept Total Protein Albumin Urine Color Yellow Urine Clarity Sl hzy Urine pH 6.0 Ur Specific [place] 1.010 Urine Protein Trace Urine Glucose (UA) Neg Urine Ketones Neg Urine Occult Blood Neg Urine Nitrite Neg Urine Bilirubin Neg Urine Urobilinogen 0.2 Ur Leukocyte Esterase Neg Urine RBC 0-2 Urine WBC 10-20 H Ur Epithelial Cells 3+ Urine Bacteria 4+ H Hyaline Casts 10-20 H Urine Mucus Occ 11/24/16 11/24/16 11/25/16 21:50 21:50 01:00 WBC RBC Hgb Hct MCV MCH MCHC RDW Plt Count MPV Neut % (Auto) Lymph % (Auto) [place] % (Auto) Eos % (Auto) Baso % (Auto) Absolute Neuts (auto) Absolute Lymphs (auto) PT INR APTT Puncture Site pH pCO2 pO2 HCO3 Total CO2 Base Excess FiO2 % Specimen Drawn By Sodium Potassium Chloride Carbon Dioxide Anion Gap BUN Creatinine Estimated GFR (MDRD) Glucose Calculated Osmolality Lactic Acid 2.2 H Calcium Corrected Calcium Magnesium Total Bilirubin AST ALT Alkaline Phosphatase Creatine Kinase 63 Troponin I < 0.01 < 0.01 Ikm-C-Aoiyugabits Pept Total Protein Albumin Urine Color Urine Clarity Urine pH Ur Specific [place] Urine Protein Urine Glucose (UA) Urine Ketones Urine Occult Blood Urine Nitrite Urine Bilirubin Urine Urobilinogen Ur Leukocyte Esterase Urine RBC Urine WBC Ur Epithelial Cells Urine Bacteria Hyaline Casts Urine Mucus 11/25/16 11/25/16 06:35 06:35 WBC 1.8 L RBC 4.17 L Hgb 12.1 Hct 37.5 MCV 90 MCH 29.1 MCHC 32.3 L RDW 18.9 H Plt Count 151 MPV 10.2 Neut % (Auto) Lymph % (Auto) [place] % (Auto) Eos % (Auto) Baso % (Auto) Absolute Neuts (auto) Absolute Lymphs (auto) PT INR APTT Puncture Site pH pCO2 pO2 HCO3 Total CO2 Base Excess FiO2 % Specimen Drawn By Sodium 140 Potassium 4.0 Chloride 101 Carbon Dioxide 29 Anion Gap 14 BUN 26 H Creatinine 1.30 H Estimated GFR (MDRD) 50 L Glucose 131 H Calculated Osmolality 276 Lactic Acid Calcium 9.3 Corrected Calcium Magnesium 1.70 Total Bilirubin AST ALT Alkaline Phosphatase Creatine Kinase Troponin I Sqy-S-Xusfonhgecx Pept 62794 H Total Protein Albumin Urine Color Urine Clarity Urine pH Ur Specific [place] Urine Protein Urine Glucose (UA) Urine Ketones Urine Occult Blood Urine Nitrite Urine Bilirubin Urine Urobilinogen Ur Leukocyte Esterase Urine RBC Urine WBC Ur Epithelial Cells Urine Bacteria Hyaline Casts Urine Mucus Plan: I can't access assessment plan. Is being probably use by Dr. Daly at the moment. 1. Decompensated congestive heart failure: She did not follow up, somewhat medication has being withdrawn also. For unknown reason. Patient does not know anything about her medication. I agree with aggressive diuresis. Will watch her Chem 7 as well as magnesium level. She is wearing LifeVest which I will continue. In the future will reinitiate hydralazine as well as isosorbide. Small dose of Aldactone has been started by Internal Medicine team. Again will watch kidney function as well as potassium very carefully. 2. Cardiomyopathy with ejection fraction 20% based on last echocardiogram: Wearing life vest which I will continue. Will maximize medical therapy. 3. Paroxysmal atrial fibrillation. Will repeat electrocardiogram today to checked rhythm. If she truly had episode of atrial fibrillation need to be anticoagulated 4. Renal failure: Will watch kidney function carefully.
[2016-11-25] MEDS: METOLAZONE 5 MG TAB PO SCH (11:59)
[2016-11-25] MEDS: SPIRONOLACTONE 25 MG TAB PO SCH ×2 (11:59→17:45)
[2016-11-25] MEDS: POTASSIUM CHLORIDE 20 MEQ TAB PO SCH (11:59)
[2016-11-25] MEDS ORDERED: POTASSIUM CHLORIDE 20 MEQ TAB PO SCH (12:00)
[2016-11-25] MEDS: ENOXAPARIN 40 MG/0.4 ML PFS SQ SCH (16:52)
[2016-11-25] MEDS ORDERED: CHAPSTICK LIP BALM ONE (20:59)
[2016-11-25] MEDS: TRAZODONE 50 MG TAB PO SCH (21:41)
[2016-11-25] MEDS: PANTOPRAZOLE 40 MG VIAL IV SCH (21:43)
[2016-11-25] MEDS ORDERED: SODIUM CHLORIDE 0.9% 3 ML FLUSH FLUSH PRN (21:45)
[2016-11-26] MEDS: Albuterol/Ipratropium Neb 3 ML NEB NEB SCH ×4 (01:26→19:42)
[2016-11-26] MEDS: SODIUM CHLORIDE 0.9% 3 ML FLUSH FLUSH SCH ×2 (05:44→16:52)
[2016-11-26 07:02] LABS: BLOOD UREA NITROGEN 28 MG/DL (7-17); CALCIUM 9.1 MG/DL (8.4-10.2); CALCULATED OSMOLALITY 275 MOs/Kg (270-290); CHLORIDE 100 mEq/L (98-107); GLUCOSE 99 MG/DL (70-99); SODIUM LEVEL 140 mEq/L (137-146)
[2016-11-26 07:10] LABS: MPV 10.4 fL (7.4-10.4)
[2016-11-26] MEDS: ALLOPURINOL 300 MG TAB PO SCH (07:58)
[2016-11-26] MEDS: SPIRONOLACTONE 25 MG TAB PO SCH ×2 (07:58→16:52)
[2016-11-26] MEDS: METOLAZONE 5 MG TAB PO SCH (07:58)
[2016-11-26] MEDS: DIGOXIN 0.125 MG TAB PO SCH (07:58)
[2016-11-26] MEDS: FUROSEMIDE 40 MG/4 ML VIAL IV SCH ×2 (07:59→16:52)
[2016-11-26] MEDS: METOPROLOL TARTRATE 25 MG TAB PO SCH ×2 (07:59→21:53)
[2016-11-26] MEDS: POTASSIUM CHLORIDE 20 MEQ TAB PO SCH (10:49)
[2016-11-26] MEDS: BENZONATATE 100 MG PERLES PO PRN ×2 (10:49→22:18)
--- NOTE | 2016-11-26 14:21 | PCM.CARD ---
- Subjective Reason for visit: Follow up cardiomyopathy and congestive heart failure. Doing better. Wants to go home. She said [birth year] her birthday and she would like to be home for it. Vital Signs: Last Vital Signs Temp 97.5 F 11/26/16 06:00 Pulse 78 11/26/16 08:00 Resp 18 11/26/16 08:00 BP 156/86 11/26/16 07:59 Pulse Ox 98 11/26/16 08:00 PE: General Appearance: Well developed. Well nourished. In no acute distress. Lungs: Chest was not overinflated. Clear to auscultation. Cardiovascular: Jugular Venous Distention: Bilateral JVD yesterday increased Heart Rate And Rhythm: Normal. Heart Sounds: Normal. Murmurs: No murmurs were heard. Carotid Arteries: Carotid pulses were normal. No bruit in the carotid artery. Edema: Not present. Lower extremities pulses normal (including femoral popliteal and dorsalis pedis) . Musculoskeletal System: General/bilateral: No cyanosis of the fingers. Neurological: Oriented to time, place, and person. Nails: No clubbing of the fingernails. Lab/DI Results Reviewed: Laboratory Results - last 24 hr 11/26/16 11/26/16 06:15 06:15 WBC 3.3 L RBC 3.99 L Hgb 11.6 L Hct 36.0 MCV 90 MCH 29.0 MCHC 32.1 L RDW 19.0 H Plt Count 177 MPV 10.4 Sodium 140 Potassium 3.8 Chloride 100 Carbon Dioxide 28 Anion Gap 16 BUN 28 H Creatinine 1.50 H Estimated GFR (MDRD) 42 L Glucose 99 Calculated Osmolality 275 Calcium 9.1 Vti-P-Hkxdbxsmcso Pept 40676 H - Assessment/Plan (1) CHF (congestive heart failure) Acute I50.9 - HEART FAILURE, UNSPECIFIED unspecified congestive heart failure type acute on chronic I50.9 - Heart failure, unspecified Comment/Plan: Clinical improvement. Tolerating diuretic quite well. Will add hydralazine isosorbide. (2) Bilateral pleural effusion Acute J90 - PLEURAL EFFUSION, NOT ELSEWHERE CLASSIFIED Comment/Plan: Present, , most likely related congestive heart failure. Continue monitoring. (3) Paroxysmal atrial fibrillation Acute I48.0 - PAROXYSMAL ATRIAL FIBRILLATION Present on Admission: No Comment/Plan: Will put patient telemetry. Electrocardiogram will be done. (4) Chronic renal failure Acute N18.9 - CHRONIC KIDNEY DISEASE, UNSPECIFIED C Comment/Plan: Continue watching her Chem 7.
--- NOTE | 2016-11-26 15:51 | CAPUEKG ---
[place], [place] Test Date: 2016-11-26 Pat Name: EMILY MARTINEZ Department: Room: 381 Gender: Female Statement Clerks Supervisor: : Requested By: Order Number: Reading MD: Rajan Hernandez MD Measurements Intervals [place] Rate: 82 P: 44 DC: 182 QRS: 13 QRSD: 98 T: 148 QT: 350 QTc: 408 Interpretive Statements Sinus rhythm with occasional premature ventricular complexes and premature atrial complexes Low voltage QRS Possible Anterolateral infarct, age undetermined Abnormal ECG Electronically Signed On 11-26-16 15:50:59 EST by Rajan Hernandez MD <[id number]> [id number]
--- NOTE | 2016-11-26 15:52 | CAPUEKG ---
[place], [place] Test Date: 2016-11-25 Pat Name: EMILY MARTINEZ Department: Room: 381 Gender: Female Jingle Writer: : Requested By: Order Number: Reading MD: Rajan Hernandez MD Measurements Intervals [place] Rate: 79 P: 40 DE: 192 QRS: 13 QRSD: 94 T: 199 QT: 326 QTc: 373 Interpretive Statements Sinus rhythm with premature atrial complexes Low voltage QRS Possible Anterolateral infarct, age undetermined Abnormal ECG Electronically Signed On 11-26-16 15:51:53 EST by Rajan Hernandez MD <[id number]> [id number]
[2016-11-26] MEDS: ENOXAPARIN 40 MG/0.4 ML PFS SQ SCH (16:52)
[2016-11-26] MEDS: ISOSORBIDE DINITRATE 10 MG TAB PO SCH (16:52)
--- NOTE | 2016-11-26 19:49 | GENMEDPROG ---
Chief Complaint: Not wearing her Vest right now and complains of swelling in her legs Notes Reviewed: Yes Events from last night noted and discussed with Clinical Staff Current Medication List: Reviewed Currently: Reports: Cough DVT Prophylaxis: Yes - Physical Examination Vital Signs and I&O: Last Vital Signs Temp 97.9 F 11/26/16 14:00 Pulse 74 11/26/16 19:44 Resp 16 11/26/16 19:44 BP 142/81 11/26/16 14:00 Pulse Ox 98 11/26/16 19:44 Oxygen Pulse Oxygen Saturation 98 O2 Device Room Air Oxygen Flow Rate 2 Fraction of Inspired Oxygen ( FIO2) Intake & Output 11/23/16 11/24/16 11/25/16 11/26/16 23:59 23:59 23:59 23:59 Intake Total 0 880 1445 Output Total 1275 1000 Balance 0 -395 445 Patient's weight 91.852 kg 91.852 kg 94.489 kg General: Alert, Oriented x3, No acute distress, Well appearing, Well nourished HEENT: Normal (Normocephalic, atraumatic;EOMI.Sclera white, Nares patent, without discharge or bleeding. No oropharyngeal lesions or erythema. Mucous membranes are dry.) Neck: Non-tender, Full range of motion, Normal Trachea alignment, Normal inspection (No cervical lymphadenopathy. No supraclavicular lymphadenopathy.), No Masses palpable, Supple Lymphatics: Normal (No lymph node swelling or pain.) Respiratory: Other (Crackles at bilateral bases. No wheezing or rhonchi.) Cardiovascular: Normal S1, No Gallops,Rubs/Murmurs, Normal S2, Good Pedal Pulses (DP pulses 2+ bilaterally), Irregular. negative: Regular rate and rhythm GI: Normal bowel sounds (normal active sounds), Soft (non-distended), Non tender , No hepatospenomegaly, No masses Extremities/Musculoskeletal: Normal pulses (DP pulses 2+ bilaterally) Skin: Warm,Dry and Intact, No rashes, No significant lesion Neurological: Strength at 5/5 X4 ext (Motor 5/5 throughout.), Normal tone, Cranial nerves 3-12 NL ( 2-12 grossly intact.) Psych/Mental Status: Appropriate, Normal Affect Lab/DI/Studies Reviewed: 11/26/16 06:15 11/26/16 06:15 Laboratory Results - last 24 hr 11/26/16 11/26/16 06:15 06:15 WBC 3.3 L RBC 3.99 L Hgb 11.6 L Hct 36.0 MCV 90 MCH 29.0 MCHC 32.1 L RDW 19.0 H Plt Count 177 MPV 10.4 Sodium 140 Potassium 3.8 Chloride 100 Carbon Dioxide 28 Anion Gap 16 BUN 28 H Creatinine 1.50 H Estimated GFR (MDRD) 42 L Glucose 99 Calculated Osmolality 275 Calcium 9.1 Kao-N-Drcsgmnhckk Pept 96372 H - Assessment (1) Chronic systolic (congestive) heart failure Chronic I50.22 - CHRONIC SYSTOLIC (CONGESTIVE) HEART FAILURE Comment/Plan: Recent echo at product designer's office showed EF < 20%. Diet of 2 g Na. Daily weights with strict I/O's. No IVF unless patient is NPO. As tolerated, give beta stephani. Patient unable to take LANCE inhibitor or ARB due to renal failure. Will continue to Provide teaching regarding heart failure, 2g Na diet, daily weights, signs of acute heart failure. I have taken the liberty of adding Zaroxolyn and Aldactone to her regimen and Dr. Hernandez has been consulted for further management. The presently nitrates have been reinitiated. (2) Acute kidney injury Acute N17.9 - ACUTE KIDNEY FAILURE, UNSPECIFIED Comment/Plan: Monitor renal function avoid any nephrotoxins . Renal function improved but is likely to worsen and she is given Lance inhibitors or angiotensin receptor blockers as it did before with creatinine climbing to 2.8. (3) Paroxysmal atrial fibrillation Acute I48.0 - PAROXYSMAL ATRIAL FIBRILLATION Comment/Plan: Patient is followed by Cardiology as an outpatient, keep potassium more than 4 and magnesium more than 2. Continue her oral medications, including beta-stephani. She is rate controlled at baseline. (4) Peripheral edema Acute R60.9 - EDEMA, UNSPECIFIED Comment/Plan: Associated with her CHF continue to attempt diuresing. (5) Leukopenia Acute D72.819 - DECREASED WHITE BLOOD CELL COUNT, UNSPECIFIED Qualifiers: Leukopenia type: other Neutropenia type: N Qualified Code(s): D72.818 - Other decreased white blood cell count Comment/Plan: Monitor CBC. (6) Bilateral pleural effusion Chronic J90 - PLEURAL EFFUSION, NOT ELSEWHERE CLASSIFIED Comment/Plan: Associated with her CHF. Case Care Discussed with: Patient, Family, Nursing Staff, Resource Management Education/Counseling Given To: Patient, Family Member Education/Counseling Given Regarding: Diagnosis, Treatment Total Time: 38 min Critical Care: No Code: 42682 (12+)
[2016-11-26] MEDS: PANTOPRAZOLE 40 MG VIAL IV SCH (21:34)
[2016-11-26] MEDS: APIXABAN 5 MG TABLET PO SCH (21:52)
[2016-11-26] MEDS: TRAZODONE 50 MG TAB PO SCH (21:53)
[2016-11-26] MEDS: hydrALAZINE 10 MG TAB PO SCH (21:53)
[2016-11-27] MEDS: Albuterol/Ipratropium Neb 3 ML NEB NEB SCH ×4 (01:34→21:04)
[2016-11-27] MEDS: SODIUM CHLORIDE 0.9% 3 ML FLUSH FLUSH SCH ×2 (05:39→17:07)
[2016-11-27] MEDS: hydrALAZINE 10 MG TAB PO SCH ×3 (05:39→20:31)
[2016-11-27] MEDS: ISOSORBIDE DINITRATE 10 MG TAB PO SCH ×3 (05:40→17:07)
[2016-11-27 07:43] LABS: MPV 10.1 fL (7.4-10.4)
[2016-11-27 07:58] LABS: BLOOD UREA NITROGEN 30 MG/DL (7-17); CALCIUM 9.2 MG/DL (8.4-10.2); CALCULATED OSMOLALITY 273 MOs/Kg (270-290); CHLORIDE 96 mEq/L (98-107); GLUCOSE 75 MG/DL (70-99); SODIUM LEVEL 139 mEq/L (137-146)
[2016-11-27] MEDS: SPIRONOLACTONE 25 MG TAB PO SCH ×2 (08:45→17:07)
[2016-11-27] MEDS: DIGOXIN 0.125 MG TAB PO SCH (08:46)
[2016-11-27] MEDS: APIXABAN 5 MG TABLET PO SCH ×2 (08:46→20:31)
[2016-11-27] MEDS: FUROSEMIDE 40 MG/4 ML VIAL IV SCH ×2 (08:47→17:07)
[2016-11-27] MEDS: METOPROLOL TARTRATE 25 MG TAB PO SCH ×2 (08:47→20:31)
[2016-11-27] MEDS: METOLAZONE 5 MG TAB PO SCH (08:48)
[2016-11-27] MEDS: ALLOPURINOL 300 MG TAB PO SCH (08:48)
[2016-11-27] MEDS: POTASSIUM CHLORIDE 20 MEQ TAB PO SCH (11:25)
--- NOTE | 2016-11-27 11:55 | CAPUEKG ---
[place], [place] Test Date: 2016-11-27 Pat Name: EMILY MARTINEZ Department: Room: 381 Gender: Female Four Roll Calender Operator: : Requested By: Order Number: Reading MD: Rajan Hernandez MD Measurements Intervals [place] Rate: 78 P: 39 [place]: 160 QRS: 106 QRSD: 96 T: 259 QT: 324 QTc: 369 Interpretive Statements Sinus rhythm with premature supraventricular complexes with occasional premature ventricular complexes Low voltage QRS Possible Anterolateral infarct, age undetermined Abnormal ECG Electronically Signed On 11-27-16 11:54:23 EST by Rajan Hernandez MD <[id number]> [id number]
[2016-11-27] MEDS: TUSSIONEX 5 ML ORAL SYRINGE PO SCH (12:42)
--- NOTE | 2016-11-27 17:05 | GENMEDPROG ---
Chief Complaint: sob better walked >100 ft today Notes Reviewed: Yes Events from last night noted and discussed with Clinical Staff Current Medication List: Reviewed Currently: Reports: Cough DVT Prophylaxis: Yes - Physical Examination Vital Signs and I&O: Last Vital Signs Temp 97.8 F 11/27/16 11:06 Pulse 78 11/27/16 12:44 Resp 20 11/27/16 12:44 BP 160/90 11/27/16 12:44 Pulse Ox 96 11/27/16 11:06 Oxygen Pulse Oxygen Saturation 96 O2 Device Room Air Oxygen Flow Rate 2 Fraction of Inspired Oxygen ( FIO2) Intake & Output 11/24/16 11/25/16 11/26/16 11/27/16 23:59 23:59 23:59 23:59 Intake Total 0 880 1565 660 Output Total 1275 1650 2100 Balance 0 - Patient's weight 91.852 kg 91.852 kg 94.489 kg 94.404 kg General: Alert, Oriented x3, No acute distress, Well appearing, Well nourished HEENT: Normal (Normocephalic, atraumatic;EOMI.Sclera white, Nares patent, without discharge or bleeding. No oropharyngeal lesions or erythema. Mucous membranes are dry.) Neck: Non-tender, Full range of motion, Normal Trachea alignment, Normal inspection (No cervical lymphadenopathy. No supraclavicular lymphadenopathy.), No Masses palpable, Supple Lymphatics: Normal (No lymph node swelling or pain.) Respiratory: Other (Crackles at bilateral bases. No wheezing or rhonchi.) Cardiovascular: Normal S1, No Gallops,Rubs/Murmurs, Normal S2, Good Pedal Pulses (DP pulses 2+ bilaterally), Irregular. negative: Regular rate and rhythm GI: Normal bowel sounds (normal active sounds), Soft (non-distended), Non tender , No hepatospenomegaly, No masses Extremities/Musculoskeletal: Normal pulses (DP pulses 2+ bilaterally) Skin: Warm,Dry and Intact, No rashes, No significant lesion Neurological: Strength at 5/5 X4 ext (Motor 5/5 throughout.), Normal tone, Cranial nerves 3-12 NL ( 2-12 grossly intact.) Psych/Mental Status: Appropriate, Normal Affect Lab/DI/Studies Reviewed: 11/27/16 07:06 11/27/16 07:06 Laboratory Results - last 24 hr 11/27/16 11/27/16 11/27/16 07:06 07:06 07:06 WBC 4.1 RBC 4.01 L Hgb 11.6 L Hct 36.5 MCV 91 MCH 29.0 MCHC 31.8 L RDW 19.2 H Plt Count 177 MPV 10.1 Sodium Cancelled 139 Potassium Cancelled 3.8 Chloride Cancelled 96 L Carbon Dioxide Cancelled 32 Anion Gap Cancelled 15 BUN Cancelled 30 H Creatinine Cancelled 1.40 H Estimated GFR (MDRD) Cancelled 46 L Glucose Cancelled 75 Calculated Osmolality Cancelled 273 Calcium Cancelled 9.2 Corrected Calcium Cancelled Magnesium 1.70 Trq-K-Gjeffvvegql Pept Cancelled 61192 H - Assessment (1) Chronic systolic (congestive) heart failure Chronic I50.22 - CHRONIC SYSTOLIC (CONGESTIVE) HEART FAILURE Comment/Plan: Recent echo at assistant manager quality management's office showed EF < 20%. Diet of 2 g Na. Daily weights with strict I/O's. No IVF unless patient is NPO. As tolerated, give beta stephani. Patient unable to take LANCE inhibitor or ARB due to renal failure. Will continue to Provide teaching regarding heart failure, 2g Na diet, daily weights, signs of acute heart failure. I have taken the liberty of adding Zaroxolyn and Aldactone to her regimen and Dr. Hernandez has been consulted for further management. The presently nitrates have been reinitiated. (2) Acute kidney injury Acute N17.9 - ACUTE KIDNEY FAILURE, UNSPECIFIED Comment/Plan: Monitor renal function avoid any nephrotoxins . Renal function improved but is likely to worsen and she is given Lance inhibitors or angiotensin receptor blockers as it did before with creatinine climbing to 2.8. (3) Paroxysmal atrial fibrillation Acute I48.0 - PAROXYSMAL ATRIAL FIBRILLATION Comment/Plan: Patient is followed by Cardiology as an outpatient, keep potassium more than 4 and magnesium more than 2. Continue her oral medications, including beta-stephani. She is rate controlled at baseline. (4) Peripheral edema Acute R60.9 - EDEMA, UNSPECIFIED Comment/Plan: Associated with her CHF continue to attempt diuresing. (5) Leukopenia Acute D72.819 - DECREASED WHITE BLOOD CELL COUNT, UNSPECIFIED Qualifiers: Leukopenia type: other Neutropenia type: N Qualified Code(s): D72.818 - Other decreased white blood cell count Comment/Plan: Monitor CBC. (6) Bilateral pleural effusion Chronic J90 - PLEURAL EFFUSION, NOT ELSEWHERE CLASSIFIED Comment/Plan: Associated with her CHF. Case Care Discussed with: Patient, Nursing Staff, Resource Management Education/Counseling Given To: Patient Education/Counseling Given Regarding: Diagnosis Critical Care: No Code: 88458 (12+)
[2016-11-27] MEDS: PANTOPRAZOLE 40 MG VIAL IV SCH (20:30)
[2016-11-27] MEDS: TRAZODONE 50 MG TAB PO SCH (20:31)
[2016-11-28] MEDS: TUSSIONEX 5 ML ORAL SYRINGE PO SCH ×2 (00:21→13:27)
[2016-11-28] MEDS: Albuterol/Ipratropium Neb 3 ML NEB NEB SCH ×3 (02:16→14:12)
[2016-11-28] MEDS: SODIUM CHLORIDE 0.9% 3 ML FLUSH FLUSH SCH (05:59)
[2016-11-28] MEDS: hydrALAZINE 10 MG TAB PO SCH ×2 (05:59→13:27)
[2016-11-28] MEDS: ISOSORBIDE DINITRATE 10 MG TAB PO SCH ×2 (05:59→11:44)
[2016-11-28 06:55] LABS: MPV 10.3 fL (7.4-10.4)
[2016-11-28 07:30] LABS: BLOOD UREA NITROGEN 30 MG/DL (7-17); CALCIUM 9.2 MG/DL (8.4-10.2); CALCULATED OSMOLALITY 273 MOs/Kg (270-290); CHLORIDE 94 mEq/L (98-107); GLUCOSE 75 MG/DL (70-99); SODIUM LEVEL 139 mEq/L (137-146)
[2016-11-28] MEDS: SPIRONOLACTONE 25 MG TAB PO SCH (09:16)
[2016-11-28] MEDS: FUROSEMIDE 40 MG/4 ML VIAL IV SCH (09:16)
[2016-11-28] MEDS: APIXABAN 5 MG TABLET PO SCH (09:17)
[2016-11-28] MEDS: DIGOXIN 0.125 MG TAB PO SCH (09:17)
[2016-11-28] MEDS: METOPROLOL TARTRATE 25 MG TAB PO SCH (09:19)
[2016-11-28] MEDS: ALLOPURINOL 300 MG TAB PO SCH (09:19)
[2016-11-28] MEDS: METOLAZONE 5 MG TAB PO SCH (09:19)
--- NOTE | 2016-11-28 10:43 | PCM.CARD ---
- Subjective Reason for visit: Follow up congestive heart failure and cardiomyopathy Height better night slept well. However complained of being exhausted. No shortness of breath no chest pain no passing out. Vital Signs: Last Vital Signs Temp 97.6 F 11/28/16 10:27 Pulse 74 11/28/16 10:27 Resp 18 11/28/16 10:27 BP 139/79 11/28/16 10:27 Pulse Ox 95 11/28/16 10:27 PE: General Appearance: Well developed. Well nourished. In no acute distress. Lungs: Chest was not overinflated. Clear to auscultation. Cardiovascular: Jugular Venous Distention: JVD still increased by improved.. Heart Rate And Rhythm: Normal. Heart Sounds: Normal. Murmurs: No murmurs were heard. Carotid Arteries: Carotid pulses were normal. No bruit in the carotid artery. Edema: Not present. Lower extremities pulses normal (including femoral popliteal and dorsalis pedis) . Musculoskeletal System: General/bilateral: No cyanosis of the fingers. Neurological: Oriented to time, place, and person. Nails: No clubbing of the fingernails. Lab/DI Results Reviewed: Laboratory Results - last 24 hr 11/28/16 11/28/16 05:55 05:55 WBC 3.7 L RBC 4.12 L Hgb 12.0 Hct 37.3 MCV 91 MCH 29.2 MCHC 32.3 L RDW 18.9 H Plt Count 183 MPV 10.3 Sodium 139 Potassium 4.0 Chloride 94 L Carbon Dioxide 34 H Anion Gap 15 BUN 30 H Creatinine 1.50 H Estimated GFR (MDRD) 42 L Glucose 75 Calculated Osmolality 273 Calcium 9.2 - Assessment/Plan (1) CHF (congestive heart failure) Acute I50.9 - HEART FAILURE, UNSPECIFIED unspecified congestive heart failure type acute on chronic I50.9 - Heart failure, unspecified Comment/Plan: Good diuresis, overall clinically improved. Will continue present management. Will switch her to oral diuretics. Continue vasodilatation. (2) Bilateral pleural effusion Chronic J90 - PLEURAL EFFUSION, NOT ELSEWHERE CLASSIFIED Comment/Plan: Noted, stable. (3) Paroxysmal atrial fibrillation Acute I48.0 - PAROXYSMAL ATRIAL FIBRILLATION Present on Admission: No Comment/Plan: No episode of atrial fibrillation while in the hospital. Continue anticoagulation. (4) Chronic renal failure Acute N18.9 - CHRONIC KIDNEY DISEASE, UNSPECIFIED C Comment/Plan: Will watch kidney function. - Plan Lady came with decompensated congestive heart failure. For some reason she disappeared from follow up on, she missed many of her medications, majority of those medication were restarted. She is doing better.
[2016-11-28] MEDS ORDERED: POTASSIUM CHLORIDE 20 MEQ TAB PO SCH (12:00)
[2016-11-28] MEDS ORDERED: Vaccine Screening Complete SCH (13:00)
--- NOTE | 2016-11-28 13:23 | PCM.DCS92 ---
- Final/Secondary Discharge Diagnosis (1) Chronic systolic (congestive) heart failure Chronic I50.22 - CHRONIC SYSTOLIC (CONGESTIVE) HEART FAILURE Comment: Recent echo at import/export agent's office showed EF < 20%. Diet of 2 g Na. Daily weights with strict I/O's. No IVF unless patient is NPO. As tolerated, give beta stephani. Patient unable to take LANCE inhibitor or ARB due to renal failure. Will continue to Provide teaching regarding heart failure, 2g Na diet, daily weights, signs of acute heart failure. I have taken the liberty of adding Zaroxolyn and Aldactone to her regimen and Dr. Hernandez has been consulted for further management. The presently nitrates have been reinitiated. (2) Acute kidney injury Acute N17.9 - ACUTE KIDNEY FAILURE, UNSPECIFIED Comment: Monitor renal function avoid any nephrotoxins . Renal function improved but is likely to worsen and she is given Lance inhibitors or angiotensin receptor blockers as it did before with creatinine climbing to 2.8. (3) Paroxysmal atrial fibrillation Acute I48.0 - PAROXYSMAL ATRIAL FIBRILLATION Present on Admission: No Comment: Patient is followed by Cardiology as an outpatient, keep potassium more than 4 and magnesium more than 2. Continue her oral medications, including beta-stephani. She is rate controlled at baseline. (4) Peripheral edema Acute R60.9 - EDEMA, UNSPECIFIED Comment: Associated with her CHF continue to attempt diuresing. (5) Leukopenia Acute D72.819 - DECREASED WHITE BLOOD CELL COUNT, UNSPECIFIED other N D72.818 - Other decreased white blood cell count Comment: Monitor CBC. (6) Bilateral pleural effusion Chronic J90 - PLEURAL EFFUSION, NOT ELSEWHERE CLASSIFIED Comment: Associated with her CHF. Discharge Disposition: Discharge w/ Home Health Discharge Condition: Improved Cognitive Discharge Status: Unimpaired Fuctional Discharge Status: Walker Assistance, Fall Risk Physician Follow up/Referrals: Sharad Donald MD [Primary Care Provider] - One Week Home Medications / New Prescriptions: New Spironolactone [Aldactone] 25 mg PO LASBID #60 tablet hydrALAZINE (Cardiovascular) [Apresoline] 10 mg PO TID #100 tablet Apixaban [Eliquis] 5 mg PO BID #60 tablet POTASSIUM CHLORIDE Tablet [K-DUR 20 mEq Tablet*] 20 meq PO DAILY@1200 #30 tab.er.prt Digoxin [Lanoxin, Digitek] 0.0625 mg PO DAILY #30 tablet Metolazone [Zaroxolyn] 5 mg PO DAILY #30 tablet Continue Trazodone HCl [Desyrel] 50 mg PO QHS Albuterol Sulfate [Ventolin] 2.5 mg NEB Q6H PRN PRN Reason: Shortness Of Breath Omeprazole [Prilosec] 20 mg PO DAILY #30 cap Benzonatate 200 mg PO TID PRN PRN Reason: Cough Allopurinol [Zyloprim] 300 mg PO DAILY Furosemide [Lasix] 40 mg PO BID Metoprolol Tartrate [Lopressor] 25 mg PO BID #60 Discontinued Potassium Chloride 20 meq PO DAILY #60 tablet.er Digoxin [Lanoxin, Digitek] 0.125 mg PO DAILY Ondansetron HCl [Zofran] 4 mg PO Q8H PRN PRN Reason: Nausea Discharge Home Medication List Albuterol Sulfate [Ventolin] 2.5 mg NEB Q6H PRN 08/23/16 [History Confirmed ] Trazodone HCl [Desyrel] 50 mg PO QHS 08/23/16 [History Confirmed 11/24/16] Omeprazole [Prilosec] 20 mg PO DAILY #30 cap 08/28/16 [Rx Confirmed 11/24/16] Allopurinol [Zyloprim] 300 mg PO DAILY 11/24/16 [History Confirmed 11/24/16] Benzonatate 200 mg PO TID PRN 11/24/16 [History Confirmed 11/24/16] Furosemide [Lasix] 40 mg PO BID 11/24/16 [History Confirmed 11/24/16] Apixaban [Eliquis] 5 mg PO BID #60 tablet 11/28/16 [Rx] Digoxin [Lanoxin, Digitek] 0.0625 mg PO DAILY #30 tablet 11/28/16 [Rx] Metolazone [Zaroxolyn] 5 mg PO DAILY #30 tablet 11/28/16 [Rx] Metoprolol Tartrate [Lopressor] 25 mg PO BID #60 11/28/16 [Rx Confirmed ] POTASSIUM CHLORIDE Tablet [K-DUR 20 mEq Tablet*] 20 meq PO DAILY@1200 #30 tab.er.prt 11/28/16 [Rx] Spironolactone [Aldactone] 25 mg PO LASBID #60 tablet 11/28/16 [Rx] hydrALAZINE (Cardiovascular) [Apresoline] 10 mg PO TID #100 tablet 11/28/16 [Rx] New Discharge Medications (Rx) Apixaban [Eliquis] 5 mg PO BID #60 tablet 11/28/16 [Rx] Digoxin [Lanoxin, Digitek] 0.0625 mg PO DAILY #30 tablet 11/28/16 [Rx] Metolazone [Zaroxolyn] 5 mg PO DAILY #30 tablet 11/28/16 [Rx] Metoprolol Tartrate [Lopressor] 25 mg PO BID #60 11/28/16 [Rx] POTASSIUM CHLORIDE Tablet [K-DUR 20 mEq Tablet*] 20 meq PO DAILY@1200 #30 tab.er.prt 11/28/16 [Rx] Spironolactone [Aldactone] 25 mg PO LASBID #60 tablet 11/28/16 [Rx] hydrALAZINE (Cardiovascular) [Apresoline] 10 mg PO TID #100 tablet 11/28/16 [Rx] O2 Device: Room Air Diet at Discharge: Cardiac, Heart Healthy, Low Salt Activity: As Tolerated, No Heavy Lifting (nothing over 30 lbs), No Driving ( while using pain medications) Call Office For: Worsening Symptoms, Wound is Draining Pus, Fever over 101 F - DC Summary Notes HPI/Notes: Patient is a 65 years old woman well-known to me from last admission she does have cardiomyopathy with ejection fraction of 20%. Last time she was here she improved quite significantly she was put on appropriate medication discharged home. However she did not follow-up with any import/export agent she just so her primary care physician. There were also some changes in the list of the medication she has been taking at home basically hydralazine isosorbide disappeared from the list. She presented to the hospital with progressive shortness of breath that been going on for time of last few weeks. There is increased swelling of lower extremities paroxysmal atrial dyspnea. She does have all signs and symptoms of decompensated congestive heart failure. She was admitted yesterday diuretics were given. She seems to be improving and seems to be comfortable today. Denies having any chest pain. She does were life vest , no discharges from the device. Hospital Course Note:: Discharge summary on patient named EMILY TRERI MARTINEZ admitted to [facility] on 11/24/16 by Kulwinder Colemna MD. Date of discharge is []. VERY PLEASANT 66-YEAR-OLD FEMALE ADMITTED TO OUR FACILITY WITH CONGESTIVE HEART FAILURE. SHE HAD BEEN LOST TO FOLLOW-UP IN [place] OUT OF ALL OF HER MEDICATIONS. HER MEDICINES WERE RESTARTED SHE HAD SIGNIFICANT IMPROVEMENT WITH A GOOD DIURESIS. AT THIS POINT PATIENT HAS REACHED MAXIMAL BENEFIT OF HOSPITALIZATION. SHE IS STABLE TO DISCHARGE HOME ON LASIX IN OTHER CONGESTIVE HEART FAILURE MEDICATIONS PER HER DISCHARGE MEDICATION LIST. Code: 65672 (>30min.) - Physical Exam Vital Signs: Last Vital Signs Temp 97.6 F 11/28/16 10:27 Pulse 74 11/28/16 10:27 Resp 18 11/28/16 10:27 BP 139/79 11/28/16 10:27 Pulse Ox 100 11/28/16 11:43 Oxygen Pulse Oxygen Saturation 100 O2 Device Room Air Oxygen Flow Rate 2 Fraction of Inspired Oxygen ( FIO2) Constitutional: Alert (Awake, Fully oriented, well appearing. No apparent distress) Oriented to: Time, Person, Place - HEENT Head: Normal (normocephalic,atraumatic, trachea midline) Eye: Normal (EOMI, Sclera white) Oropharynx: Normal (moist) Nose: No Symptoms Reported (without discharge or bleeding) - Respiratory/Cardiovascular Respiratory: Other (Crackles at bilateral bases. No wheezing or rhonchi.) Cardiovascular: Normal (RRR , Normal S1, S2. No murmurs, rubs, or gallops. PMI non-displaced. Carotids: no carotid bruits. No bradycardia or tachycardia. DP pulses 2+ bilaterally.) - GI Palpation: Normal (soft, non distended and nontender) Tenderness: Non tender (No rebound or guarding) - Musculoskeletal Back: Normal (Non-Tender) Extremities: Normal (normal tone, no cyanosis or edema) - Integumentary Skin: Normal (Warm dry no rashes) Lymphatics: Normal (No lymph node swelling or pain.) - Neurologic Memory Impaired: Normal Motor Function: Normal (Motor 5/5 throughout.Normal tone, Pulses 2+ No cyanosis or edema, FROM) Cranial Nerve: Normal (CN II-XII intact sensation, strength 5/5) Cerebellar: Normal (Babinski: toes downgoing bilaterally. Intact Finger to nose. Sensory grossly intact to light touch. Intact rapid alternating movements bilaterally. No pronator drift.) Mood Description: Normal (Fully oriented and appropiate affect) Perception: Normal (Normal and appropriate affect.) - Other Exam Other Exam Findings: Laboratory Results - last 24 hr 11/28/16 11/28/16 11/28/16 05:55 05:55 05:55 WBC 3.7 L RBC 4.12 L Hgb 12.0 Hct 37.3 MCV 91 MCH 29.2 MCHC 32.3 L RDW 18.9 H Plt Count 183 MPV 10.3 Sodium 139 Potassium 4.0 Chloride 94 L Carbon Dioxide 34 H Anion Gap 15 BUN 30 H Creatinine 1.50 H Estimated GFR (MDRD) 42 L Glucose 75 Calculated Osmolality 273 Calcium 9.2 Magnesium 1.80
[2016-11-28 14:18] VITALS: BP 128/63; PULSE 78; TEMP 98
[2016-11-28] MEDS ORDERED: FUROSEMIDE 40 MG TAB PO SCH (16:00)
[2016-11-29] MEDS ORDERED: METOLAZONE 2.5 MG TAB PO SCH (09:00)
[2016-11-29] MEDS ORDERED: TUSSIONEX 5 ML ORAL SYRINGE PO PRN (12:00)
== END 2016-11-28 17:20 | disposition home or self-care (01) | DRG 292 ==
LOC: ED 17:49 → MPS3 21:10
PROVIDERS: ADMIT Internal Medicine; ATTEND Hospitalist
PROC: 039C3ZZ Drainage of Left Radial Artery, Percutaneous Approach (ICD-10-PCS; principal; 2016-11-24)
DX: I50.22 Chronic systolic (congestive) heart failure (principal); N17.9 Acute kidney failure, unspecified; I42.9 Cardiomyopathy, unspecified; I48.0 Paroxysmal atrial fibrillation; D72.818 Other decreased white blood cell count; E78.00 Pure hypercholesterolemia, unspecified; K21.9 Gastro-esophageal reflux disease without esophagitis; M19.90 Unspecified osteoarthritis, unspecified site; M10.9 Gout, unspecified; Z79.899 Other long term (current) drug therapy; I12.9 Hypertensive chronic kidney disease with stage 1 through stage 4 chronic kidney disease, or unspecified chronic kidney disease; N18.9 Chronic kidney disease, unspecified
CPT/HCPCS: 36600; 71020; 80048; 80053; 81001; 82550; 82803; 83605; 83735; 83880; 84484; 85025; 85027; 85610; 85730; 87040; 93005; 94640; 96372; 97161; 99284; G0237; J0456; J0696; J1650; J1940; J2930; J3475; J3490; J7060; J7070; J7620; S0164